=== PATIENT | female | born 1955 ===

== ENCOUNTER 2019-08-01 20:01 | Inpatient (IN) | payer OTHER ==
[~2019-08-01] VITALS: Ht 10.2 cm; Wt 108.9 kg
[2019-08-01] MEDS ORDERED: GEODON40 MG (20:14)
[2019-08-01] MEDS ORDERED: XANAX XR2 MG (20:14)
[2019-08-01] MEDS ORDERED: LAMICTAL ODT100 MG (20:14)
[2019-08-01] MEDS ORDERED: LEVOXYL200 MCG (20:15)
[2019-08-03] MEDS ORDERED: LEVO-T200 MCG PO (08:58)
[2019-08-03] MEDS ORDERED: MONTELUKAST SOD10 MG PO (08:58)
[2019-08-03] MEDS ORDERED: FAMOTIDINE40 MG PO (08:58)
[2019-08-03] MEDS ORDERED: ROZEREM8 MG PO (08:59)
[2019-08-03] MEDS ORDERED: VENLAFAXINE HCL75 M1 PO (09:00)
[2019-08-03] MEDS ORDERED: FLONASE16 GM (09:01)
[2019-08-03] MEDS ORDERED: ALLEGRA ALLERG180 MG PO (09:01)
[2019-08-03] MEDS ORDERED: GASTRACE CAPSU1 EACH PO (09:01)
== END 2019-08-17 11:16 | disposition home or self-care (01) | DRG 907 ==
LOC: ER 20:01 → SURG 21:39 → SURH 08-06 13:29
PROVIDERS: ADMIT Colon & Rectal Surgery; ATTEND Colon & Rectal Surgery
PROC: 3E0F7GC Introduction of Other Therapeutic Substance into Respiratory Tract, Via Natural or Artificial Opening (ICD-10-PCS; 2019-08-01)
PROC: 0J973ZZ Drainage of Back Subcutaneous Tissue and Fascia, Percutaneous Approach (ICD-10-PCS; 2019-08-03)
PROC: 0DP Gastrointestinal System, Removal (ICD-10-PCS; principal; 2019-08-03 07:15)
PROC: 02HV33Z Insertion of Infusion Device into Superior Vena Cava, Percutaneous Approach (ICD-10-PCS; 2019-08-06)
PROC: 4A033R1 Measurement of Arterial Saturation, Peripheral, Percutaneous Approach (ICD-10-PCS; 2019-08-07)
PROC: CB2YYZZ Tomographic (Tomo) Nuclear Medicine Imaging of Respiratory System using Other Radionuclide (ICD-10-PCS; 2019-08-14)
DX: T85.79XA Infection and inflammatory reaction due to other internal prosthetic devices, implants and grafts, initial encounter (principal); I21.4 Non-ST elevation (NSTEMI) myocardial infarction; L03.312 Cellulitis of back [any part except buttock and flank]; J45.31 Mild persistent asthma with (acute) exacerbation; J98.11 Atelectasis; Y83.8 Other surgical procedures as the cause of abnormal reaction of the patient, or of later complication, without mention of misadventure at the time of the procedure; F31.9 Bipolar disorder, unspecified; E03.9 Hypothyroidism, unspecified; B95.62 Methicillin resistant Staphylococcus aureus infection as the cause of diseases classified elsewhere; F17.200 Nicotine dependence, unspecified, uncomplicated; R09.02 Hypoxemia; I50.9 Heart failure, unspecified